=== PATIENT | male | born 1980 | race Caucasian/White ===

== ENCOUNTER → 2019-10-10 13:41 | Outpatient (CLI) | payer OTHER, SELFPAY ==
[2019-10-10 15:19] LABS: Absolute Lymphocyte Count 1.31 X10^3/uL (0.83-4.51); Absolute Neutrophil Count 1.8 X10^3/uL (2.0-7.7); Basophil# 0.08 X10^3/uL; Basophil% 1.9 % (0-1); Eosinophil# 0.13 X10^3/uL; Eosinophils% 3.2 % (0-5); Hematocrit 40.5 % (40-54); Hemoglobin 13.5 g/dL (13.0-16.5); Lymphocyte # 1.31 X10^3/ul (4.0); Lymphocyte % 31.8 % (19-41); Mean Corp Hgb Conc 33.3 g/dL (32-36); Mean Platelet Vol. 9.7 fl (6.2-12.0); Monocyte# 0.78 X10^3/uL; Monocyte% 18.9 % (0-10); NRBC Flagged by Analyzer 0 % (0-5); Neutrophil # 1.81 X10^3/uL (2.7-7.7); Platelet Count 265 K/mm3 (150-450); RBC Distribution Width CV 11.9 % (11.6-14.6); RBC Distribution Width SD 41.2 fl (35.1-43.9); Red Blood Count 4.22 M/mm3 (4.6-6.2); White Blood Count 4.1 K/mm3 (4.4-11.0)
[2019-10-10 15:40] LABS: ALB/GLOB Ratio 0.8 RATIO (0.9-2.4); AST(SGOT) 45 U/L (15-37); Alanine Aminotransfer ALT/SGPT 86 U/L (16-61); Albumin, Serum 3.7 g/dL (3.2-5.0); Alkaline Phosphatase 71 U/L (45-117); Anion Gap 5 (5-15); BUN 23 mg/dL (7-18); BUN/Creat Ratio 22.8 RATIO (10-20); CPK Total, Creatine Kinase 168 U/L (39-308); Calcium,Total 9.1 mg/dL (8.5-10.1); Chloride 102 mmol/L (98-107); Creatinine, Serum 1.01 mg/dL (0.70-1.30); EST Glomerular Filtration Rate 87 mL/min (>60); Est Glom Filt Rate - Afr Amer 105 mL/min (>60); Globulin 4.4 g/dL (2.2-4.2); Glucose 88 mg/dL (74-106); Potassium 3.8 mmol/L (3.5-5.1); Protein, Total 8.1 g/dL (6.4-8.2); Sodium Level 137 mmol/L (136-145)
== END ==
PROVIDERS: PCP Family Medicine; Referring Provider Family Medicine; Visit Provider Family Medicine
DX: D69.6 Thrombocytopenia, unspecified (principal); R79.89 Other specified abnormal findings of blood chemistry; M62.82 Rhabdomyolysis
CPT/HCPCS: 36415; 80053; 82550; 85025

== ENCOUNTER → 2019-12-08 08:36 | Outpatient (CLI) | payer OTHER, SELFPAY ==
[2019-12-08 10:19] LABS: AST(SGOT) 65 U/L (15-37); Alanine Aminotransfer ALT/SGPT 74 U/L (16-61); Albumin, Serum 3.7 g/dL (3.2-5.0); Alkaline Phosphatase 83 U/L (45-117); Anion Gap 9 (5-15); BUN 20 mg/dL (7-18); BUN/Creat Ratio 15.3 RATIO (10-20); Calcium,Total 8.8 mg/dL (8.5-10.1); Chloride 105 mmol/L (98-107); Cholesterol 184 mg/dL (200); Creatinine, Serum 1.31 mg/dL (0.70-1.30); EST Glomerular Filtration Rate 65 mL/min (>60); Est Glom Filt Rate - Afr Amer 78 mL/min (>60); Globulin 3.8 g/dL (2.2-4.2); Glucose 118 mg/dL (74-106); High Density Lipoprotein 39 mg/dL; PSA,Total - Annual Screen 0.76 ng/mL (0.00-4.00); Potassium 3.6 mmol/L (3.5-5.1); Protein, Total 7.5 g/dL (6.4-8.2); Sodium Level 139 mmol/L (136-145); Triglycerides 605 mg/dL; Uric Acid 10.8 mg/dL (3.5-7.2)
== END ==
LOC: MFPLAB 08:37
PROVIDERS: PCP Family Medicine; Referring Provider Family Medicine; Visit Provider Family Medicine
DX: M10.9 Gout, unspecified (principal); R79.89 Other specified abnormal findings of blood chemistry
CPT/HCPCS: 36415; 80053; 80061; 84153; 84403; 84550; G0103

== ENCOUNTER 2020-06-11 08:36 | Inpatient (IN) | payer OTHER, SELFPAY ==
[2020-06-11] VITALS (31 sets, daily range): BP systolic 72–169; BP diastolic 46–95; PULSE 87–132; RESP 18–34; TEMP 35.7–37.2; O2SAT 90–100; BMI 43.9; BMI 42.3
--- NOTE | 2020-06-11 08:38 | EKG12_ITS ---
Test Reason : CHEST PAIN Blood Pressure : / mmHG Vent. Rate : 134 BPM Atrial Rate : 134 BPM P-R Int : 140 ms QRS Dur : 094 ms QT Int : 300 ms P-R-T Axes : 037 063 027 degrees QTc Int : 448 ms Sinus tachycardia Otherwise normal ECG When compared with ECG of 11-JUN-2020 08:39, MANUAL COMPARISON REQUIRED, DATA IS UNCONFIRMED Confirmed by RE PATTON, LI ([id number]), social media editor SACHI RAHMAN ([id number]) on 06/14/2020 1:08:29 PM Referred By: ELICEO Confirmed By:LI GRIMALDO MD
[2020-06-11] MEDS: 0.9% Normal Saline 1,000 ML 1000 ML IV (08:40)
[2020-06-11 08:56] LABS: Basophil# 0.02 X10^3/uL; Eosinophil# 0.01 X10^3/uL; Hematocrit 46.8 % (40-54); Hemoglobin 15.8 g/dL (13.0-16.5); Lymphocyte # 0.64 X10^3/ul (4.0); Mean Corp Hgb Conc 33.8 g/dL (32-36); Mean Corpuscular Volume 94.7 fL (80-94); Mean Platelet Vol. 10.5 fl (6.2-12.0); Monocyte# 0.43 X10^3/uL; NRBC Flagged by Analyzer 0.8 % (0-5); POSITIVE COUNT YES; POSITIVE MORPHOLOGY YES; Platelet Count 92 K/mm3 (150-450); RBC Distribution Width CV 16.2 % (11.6-14.6); RBC Distribution Width SD 56.3 fl (35.1-43.9); Red Blood Count 4.94 M/mm3 (4.6-6.2); White Blood Count 6.7 K/mm3 (4.4-11.0)
[2020-06-11 08:57] LABS: Differential Indicated SCAN CRITERIA MET
[2020-06-11 09:10] LABS: International Normalized Ratio 1.2; Prothrombin Time (Protime)PT. 14.6 SECONDS (11.7-14.9)
[2020-06-11 09:25] LABS: Anion Gap 17 (5-15); BUN 62 mg/dL (7-18); BUN/Creat Ratio 8.8 RATIO (10-20); Calcium,Total 6.6 mg/dL (8.5-10.1); Chloride 92 mmol/L (98-107); Creatinine, Serum 7.04 mg/dL (0.70-1.30); EST Glomerular Filtration Rate 9 mL/min (>60); Est Glom Filt Rate - Afr Amer 11 mL/min (>60); Estimated Creatinine Clearance 14.86 ml/min; Glucose 129 mg/dL (74-106); Potassium 4.6 mmol/L (3.5-5.1); Sodium Level 127 mmol/L (136-145)
[2020-06-11 09:34] LABS: Eosinophil 1 % (0-5); Lymphocyte 10 % (19-41); Metamyelocyte 4 % (0-1); Monocyte 23 % (0-10); Myelocyte 1 (0-0); Neutrophil-Band 6 % (0-5); Neutrophil-Segmented 55 % (47-70); Red Cell Morphology NORM C+C NORMAL (NORM C&C); Total Cells Counted 100 (MANUAL DIFF)
[2020-06-11 09:35] LABS: Platelet Estimate MOD DEC (ADEQ); Scan Smear per Review Criteria MANUAL DIFF
[2020-06-11 09:36] LABS: Absolute Lymphocyte Count 0.67 X10^3/uL (0.83-4.51); Absolute Neutrophil Count 4.1 X10^3/uL (2.0-7.7)
--- NOTE | 2020-06-11 09:59 | ED.RN ---
PT'S BILAT LOWER EXTREMITY PALE, BUT WARM TO TOUCH. AWARE.
--- NOTE | 2020-06-11 10:47 | CT_ITS ---
STUDY: CT ABDOMEN AND PELVIS WITHOUT CONTRAST REASON FOR EXAM: Male, 40 years old. Pain -- acute kidney failure RADIATION DOSAGE (If Supplied By Facility): CTDIvol = ( 23.87 ) mGy, DLP = ( 1425.28 ) mGycm TECHNIQUE: Transaxial images were obtained from the dome of the diaphragm to the symphysis pubis without oral contrast, and without intravenous contrast. Sagittal and coronal images were reconstructed. Individualized dose optimization techniques were used for this CT. COMPARISON: None. FINDINGS: Lack of intravenous contrast limits evaluation of abdominal and pelvic organs. There is bilateral lower lobe atelectasis, left greater than right. The visualized portions of the heart are within normal limits. There is decreased attenuation of the liver consistent with steatosis. Normal gallbladder and extrahepatic biliary system. Normal spleen. There is diffuse enlargement of the pancreas with saeed-pancreatic edema suggesting acute pancreatitis. There is mild free fluid in the left paracolic gutter. Normal bilateral adrenal glands. Normal right kidney. Normal left kidney. Normal visualized stomach. There is mild wall thickening and inflammation of the duodenum, this may be reactive. Normal colon. The appendix is visualized and appears normal. Normal abdominal aorta. Normal inferior vena cava. Normal retroperitoneum. Normal urinary bladder. Small to moderate fat containing umbilical hernia. There are diffuse degenerative changes of the visualized lumbar spine. There is bilateral L5 pars interarticularis fractures. Grade 1 anterolisthesis of L5 on S1. CT/Abdomen/Pelvis without Cont IMPRESSION: 1. There is diffuse enlargement of the pancreas with saeed-pancreatic edema suggesting acute pancreatitis. There is mild free fluid in the left paracolic gutter. Mild wall thickening and inflammation of the duodenum, this may be reactive. 2. Chronic findings described above. Electronically Signed: Layton Wilde MD at 11:39 EDT Tel , Service support ,
--- NOTE | 2020-06-11 11:07 | RAD_ITS ---
STUDY: X-RAY CHEST REASON FOR EXAM: Male, 40 years old. Dyspnea TECHNIQUE: Single AP portable view of the chest. COMPARISON: None. FINDINGS: EKG electrodes are seen. Limited inspiratory effort. Increased markings at the lung bases likely prominent on the right side suggestive of either linear atelectasis and/or early infiltrate. There is blunting of the left costophrenic angle. Normal size heart. Normal mediastinum and samara. Normal visualized pulmonary arteries. Normal visualized aortic arch and descending thoracic aorta. Normal visualized thoracic spine. Normal visualized ribs, clavicles, and shoulders. Questionable ascites within the abdomen. RAD/Chest 1 View (Portable) IMPRESSION: Limited inspiration with increased markings at the lung bases slightly more prominent on the right side suggestive of either linear atelectasis and/or early infiltrate. Findings suggestive of possible ascites. Electronically Signed: Thomas Scott MD at 11:19 EDT , Service support ,
[2020-06-11] MEDS: Ondansetron 4 MG/2 ML Vial IV (12:51)
[2020-06-11] MEDS: LORazepam 2 MG/ML Syringe 1 MG IV (13:11)
[2020-06-11 13:19] LABS: Lipase 1550 U/L (73-393)
--- NOTE | 2020-06-11 13:42 | ED.DCSUM_ITS ---
- ER Visit Summary Date of Service: 06/11/20 Chief Complaint: Dark stool concern for GI bleed History of Present Illness: The patient is a 40 M 3 of hypertension. Patient states that his Luther had dark stools is concern for GI bleed. He denies any hematemesis. He denies any history of prior GI bleed. Physical Examination: Middle-aged male initial blood pressure 86/61 otherwise afebrile. Does not look septic or toxic. HEENT exam unremarkable. Neck nontender. Lungs clear to auscultation bilaterally. Heart tachycardic rate of 105. Murmur. Abdomen soft. Mild tenderness in epigastric region. No peritoneal signs no obstruction. No bruising. Patient moving all 4 extremi ties. Nontender no edema. Neurologically is awake alert with no focal motor deficits. Test Results: CBC showed white count of 6. Hemoglobin 15. Chemistries sodium 127. Gap 1 7. CO2 was 18. Patient is in acute renal failure with a BUN of 62 creatinine 7. Lipase is elevated 1550. INR normal. Bladder scan was performed it was negative. This was done because he states he was having trouble urinating. EKG sinus tachycardia rate of 112. No signs of ischemia. Chest x- ray portable 1 view interpreted by myself and the radiologist shows atelectasis no acute process. CAT scan abdomen pelvis without any contrast due to his acute renal failure shows what appears to be acute pancreatitis with some ascites. This was read by the radiologist and reviewed by me. Emergency Department Course and Treatment: Middle-aged male with hypotension and possible GI bleed. Typed and crossed. Treated with a liter normal saline his blood pressure is now over 100. His blood count returned with a hemoglobin of 15 he is not been given any blood. He was given Zofran for his nausea. IV fentanyl for his abdominal pain. Treatment Plan: Spoke to the hospitalist patient will be admitted to the PCU. Patient is doing well on repeat exam at 1345. His blood pressure is above 100. Disposition: Admission Impression: Acute pancreatitis Rule out upper GI bleed Acute renal failure of uncertain etiology Transient hypotension resolved This note was generated with [employer] dictation software. It may contain incorrect words, spelling, and punctuation that were not noted in review of the chart prior to signing ED Disposition - Plan for ED Patient: Referrals: Chace Min MD [Primary Care Provider] -
[2020-06-11 13:59] LABS: AST(SGOT) 235 U/L (15-37); Alanine Aminotransfer ALT/SGPT 232 U/L (16-61); Albumin, Serum 2.8 g/dL (3.2-5.0); Alkaline Phosphatase 141 U/L (45-117); Bilirubin, Direct 8.56 mg/dL (0.00-0.30); Globulin 4.2 g/dL (2.2-4.2)
--- NOTE | 2020-06-11 14:25 | ED.RN ---
pt is seeing things, talking about things that are not happening. MD aware. no new orders regarding hallcinations.
[2020-06-11] MEDS: 0.9% Normal Saline 1,000 ML 999 ML IV (14:26)
--- NOTE | 2020-06-11 15:38 | HP.PCM_ITS ---
Problem List (1) SAMEER (acute kidney injury) Status: Acute (2) SIRS (systemic inflammatory response syndrome) Status: Acute (3) Hyperbilirubinemia Status: Acute (4) Pancreatitis Status: Acute Qualifiers: Chronicity: acute Pancreatitis type: unspecified pancreatitis type Acute pancreatitis complication: unspecified Qualified Code(s): K85.90 - Acute pancreatitis without necrosis or infection, unspecified History of Present Illness Date of Admission: 06/11/20 Chief Complaint: abdominal pain The patient is a 40 year old M presents with abdominal pain and intractable nausea and vomiting. Symptoms began on the . Patient stated that he was playing football with his kids got hit in abdomen and it seems to have started all the symptoms. Patient stated that he had a bit of a hernia that do have actually improved after this. The patient was not feeling any better and I presented to the emergency room. Patient was found to have acute kidney injury with a creatinine of 7. CAT scan showed what appeared be pancreatitis and lipase was 1550. In the emergency room, patient did receive fentanyl, lorazepam, Zofran, Protonix and IV fluids. Patient denies alcohol consumption that he has not drank in months. Patient noted flecks of blood in his stool and stated that stool was black. Has been taking Pepto-Bismol during this time. [] Past Medical History Medical History: Medical History (Last Updated 06/11/20 @ 15:[address] Murray Edwards, ) Gout M10.9 Hyperlipidemia E78.5 Low testosterone in male R79.89 HTN (hypertension) I10 Allergies No Known Allergies Allergy (Verified 06/11/20 11:43) Home Medications: Ambulatory Orders Medication Instructions Recorded Allopurinol 100 mg PO DAILY 06/11/20 Amlodipine [Norvasc] 10 mg PO DAILY 06/11/20 Atorvastatin Calcium [Lipitor] 10 mg PO QHS 06/11/20 Clonidine HCl 0.1 mg PO BID 06/11/20 Escitalopram Oxalate [Lexapro] 10 mg PO DAILY 06/11/20 Indomethacin 50 mg PO BID PRN PRN 06/11/20 Lisinopril 40 mg PO DAILY 06/11/20 Metoprolol Tartrate 50 mg PO DAILY 06/11/20 Testosterone Cypionate 0.5 ml IM QWEEK 06/11/20 Trazodone HCl 50 - 100 mg PO QHS 06/11/20 Smoking Status: Never smoker - *Family History Maternal History Items: - - no CAD Review of Systems Constitutional: Reports: Anorexia, Chills, Malaise, Weakness. Denies: Fever Eyes: Denies: Blurred vision, Double vision HEENT: Denies: Head Aches, Sinus Congestion, Sinus Drainage Cardiovascular: Denies: Chest Pain, Palpitations Respiratory: Denies: Cough, Shortness of breath at rest, Sputum production Gastrointestinal: Reports: Abdominal Pain, Nausea, Vomiting Genitourinary: Reports: - - decreased output. Denies: Dysuria Musculoskeletal: Denies: Joint Pain, Joint Tenderness Skin: Denies: Rash, Wounds Neurological: Denies: Numbness, Tingling, Focal weakness Psychiatric: Denies: Anxiety, Depression Hematologic/ Lymphatic: Denies: Easy Bruising, Easy Bleeding, Hx of blood clot Comment: All review of systems were negative except as mentioned above in the history of present illness and the other review of systems. VTE Information - Inpt Only VTE Present on Admission: No VTE Mechan Device Prophylaxis: None VTE Pharm Prophylaxis ordered?: Yes - Physical Exam Vitals/I&O's: Vital Signs Temp Pulse Resp BP Pulse Ox 37.2 C 118 H 22 H 92/53 L 94 06/11/20 14:21 06/11/20 14:47 06/11/20 14:47 06/11/20 14:47 06/11/20 14:47 Oxygen Flow Rate (L/min) 6 Oxygen Delivery Method Room Air Weight: 142.7 kg Body Mass Index (BMI) 43.9 Intake and Output for Last 24 Hours 06/09/20 06/10/20 06/11/20 22:59 23:59 23:59 Intake Total 1000 / 1000 Output Total 0 / 0 Balance 1000 / 1000 General: Alert, - - Rigors. Alert and oriented. Sitting up in a chair with his gown just over his lap. Diaphoretic. HEENT: Atraumatic, Normocephalic, - - Positive icterus Neck: No Nodes, Thyroid Normal Size and Texture Lungs: Clear to auscultation, Normal air movement, No rhonchi, No wheeze, No rales Cardiovascular: Regular rate, Regular Rhythm, Normal S1, Normal S2, No murmurs Abdomen: Bowel Sounds Present, Soft, Non Tender, Non-Distended, No Hepato- splenomegaly Extremities: No edema, No Calf Tenderness Skin: No rashes, No breakdown Musculoskeletal: No Tenderness to Palpation of Joints or Extremities, No Muscle Wasting Neurological: Sensory exam intact to light touch and pain, Coordination normal Psych/Mental Status: Appropriate, Anxious Laboratory Results 06/11/20 08:40: WBC 6.7, RBC 4.94, Hgb 15.8, Hct 46.8, MCV 94.7 H, MCH 32.0, MCHC 33.8, RDW Std Deviation 56.3 H, RDW Coeff of Blayne 16.2 H, Plt Count 92 L, MPV 10.5, Immature Gran % (Auto) AFTER SCHOOL TEACHER, Neut % (Auto) AFTER SCHOOL TEACHER, Lymph % (Auto) AFTER SCHOOL TEACHER, [place] % (Auto) AFTER SCHOOL TEACHER, Eos % (Auto) AFTER SCHOOL TEACHER, Baso % (Auto) AFTER SCHOOL TEACHER, Absolute Neuts (auto) 4.1, Absolute Lymphs (auto) 0.67 L, Total Counted 100, Neutrophils % (Manual) 55, Band Neutrophils % 6 H, Lymphocytes % (Manual) 10 L, Monocytes % (Manual) 23 H, Eosinophils % (Manual) 1, Metamyelocytes % 4 H, Myelocytes % 1 H, Nucleated RBC % 0.8, Diff Path Review July, Platelet Estimate MOD DEC, RBC Morphology NORM C+C 06/11/20 08:40: PT 14.6, INR 1.2 06/11/20 08:40: Sodium 127 L, Potassium 4.6, Chloride 92 L, Carbon Dioxide 18.0 L, Anion Gap 17 H, BUN 62 H, Creatinine 7.04 H, Estim Creat Clear Calc 14.86, Est GFR (MDRD) Af Amer 11 L, Est GFR (MDRD) Non-Af 9 L, BUN/Creatinine Ratio 8.8 L, Glucose 129 H, Calcium 6.6 L 06/11/20 08:40: Blood Type O POSITIVE, Antibody Screen NEGATIVE, Crossmatch See Detail 06/11/20 08:40: Lipase 1550 H 06/11/20 08:40: Total Bilirubin 10.70 H, Direct Bilirubin 8.56 H, AST 235 H, ALT 232 H, Alkaline Phosphatase 141 H, Total Protein 7.0, Albumin 2.8 L, Globulin 4.2 Clinical Impression(s) from Imaging Studies Abdomen/Pelvis CT 06/11/20 10:47 IMPRESSION: 1. There is diffuse enlargement of the pancreas with saeed-pancreatic edema suggesting acute pancreatitis. There is mild free fluid in the left paracolic gutter. Mild wall thickening and inflammation of the duodenum, this may be reactive. 2. Chronic findings described above. Electronically Signed: Layton Wilde MD at 11:39 EDT Tel , Service support , Chest X-Ray 06/11/20 11:07 IMPRESSION: Limited inspiration with increased markings at the lung bases slightly more prominent on the right side suggestive of either linear atelectasis and/or early infiltrate. Findings suggestive of possible ascites. Electronically Signed: Thomas Scott MD at 11:19 EDT , Service support , Assessment/Plan All Active Problems SAMEER (acute kidney injury) (Acute) SIRS (systemic inflammatory response syndrome) (Acute) Hyperbilirubinemia (Acute) Pancreatitis (Acute) 1. Acute kidney injury Presumed prerenal given the patient's intractable nausea and vomiting though he was able to drink some fluids. Plan * IV fluids * Check renal studies, check renal ultrasound * Consult nephrology, discussed with Dr. Abreu * May need to consider [place] catheter placement * Hold potentiating medications 2. Systemic inflammatory response syndrome Unclear etiology at this time Patient has no respiratory complaints and stated that he had Covid last year Plan * Empiric antibiotics with Pipracil/tazobactam * Check blood culture, urine culture and COVID-19 rapid antigen. 3. Elevated bilirubin Unclear etiology at this time Plan * General surgery on consult, Dr. Pennington notified * He has recommended an MRCP given the extremely high bilirubin level. 4. Pancreatitis, acute Question if the hit that he sustained playing football with his kids cause any of his abdominal complaints or if it is just more coincidental Plan * Continue with IV fluids * MRCP 5. Gout Stable at this time Plan: Hold allopurinol for the time being 6. Hypotension Suspect due to volume depletion Improved Plan * Hold the antihypertensives for now * IV fluids 7. VTE prophylaxis Subcu heparin for now. If patient does require intervention then would hold in place on SCDs. 8. Black stool Hemoglobin stable though certainly would be hemoconcentrated at this point in time Suspect related with Pepto-Bismol Plan * Monitor for now * PPI Inpatient E&M: [id number] Init Hosp L3
--- NOTE | 2020-06-11 16:15 | ED.RN ---
discussed holding pain medication with md. pt bp is up and down and pt has been hallucinating since receiving ativan.
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
--- NOTE | 2020-06-11 17:19 | ED.RN ---
report given to [facility].
--- NOTE | 2020-06-11 17:56 | MRI_ITS ---
STUDY: MR MRCP WITHOUT CONTRAST REASON FOR EXAM: Male, 40 years old. elevated bilirubin, GI bleed, blood in stool TECHNIQUE: Standard MRCP technique was utilized. COMPARISON: CT earlier today FINDINGS: Gall Bladder: Normal with no distention or demonstrated fixed intraluminal filling defect. Cystic duct: Normal with no demonstrated fixed filling defect. Intrahepatic ducts: Normal visualized intrahepatic ducts with no demonstrated fixed filling defect, dilation or stricture. Common hepatic duct: Normal with no demonstrated fixed filling defect, dilation or stricture. Common bile duct: Normal with no demonstrated fixed filling defect, dilation or stricture. Pancreatic duct: Normal with no demonstrated fixed filling defect, dilation or stricture. MRI/MRCP Abdomen without Contrast IMPRESSION: Normal MR Cholangiopancreatography (MRCP). Electronically Signed: Sebastian Rankin MD at 20:28 EDT Tel , Service support ,
--- NOTE | 2020-06-11 17:56 | US_ITS ---
STUDY: RENAL ULTRASOUND - COMPLETE REASON FOR EXAM: Male, 40 years old. SAMEER TECHNIQUE: Ultrasound evaluation of the kidneys was performed with real-time and static sánchez-scale imaging. COMPARISON: None. FINDINGS: RIGHT KIDNEY: Normal location of the right kidney, which is normal in size. The right kidney measures 12.3 cm. There is a normal cortex of the right kidney. The renal cortex measures 1.8 cm. There is no right renal mass or cyst. There are no right renal calculi. There is no right hydronephrosis. DISTAL RIGHT URETER: There is non-visualization of the distal right ureter. There is no demonstrated right ureterovesical junction calculus. There is a visualized right ureteral jet. LEFT KIDNEY: Normal location of the left kidney, which is normal in size. The left kidney measures 13.1 cm. There is a normal cortex of the left kidney. The renal cortex measures 1.8 cm. There is no left renal mass or cyst. There are no left renal calculi. There is no left hydronephrosis. DISTAL LEFT URETER: There is non-visualization of the distal left ureter. There is no demonstrated left ureterovesical junction calculus. There is a visualized left ureteral jet. . US/Kidney and Bladder IMPRESSION: Normal ultrasound of the kidneys. Electronically Signed: Sebastian Rankin MD at 18:53 EDT Tel , Service support ,
[2020-06-11] MEDS: Lactated Ringers 1,000 ML 200 ML IV (18:11)
[2020-06-11] MEDS: 0.9% Saline Lock 10 ML Syringe IV (18:17)
[2020-06-11 18:30] LABS: Absolute Lymphocyte Count 0.63 X10^3/uL (0.83-4.51); Absolute Neutrophil Count 3.1 X10^3/uL (2.0-7.7); Basophil# 0.01 X10^3/uL; Basophil% 0.2 % (0-1); Eosinophil# 0.02 X10^3/uL; Eosinophils% 0.5 % (0-5); Hematocrit 40.7 % (40-54); Hemoglobin 13.8 g/dL (13.0-16.5); Lymphocyte # 0.63 X10^3/ul (4.0); Mean Corp Hgb Conc 33.9 g/dL (32-36); Mean Corpuscular Hgb 31.9 pg (27.0-32.0); Mean Corpuscular Volume 94.2 fL (80-94); Mean Platelet Vol. 10.5 fl (6.2-12.0); Monocyte% 9.5 % (0-10); NRBC Flagged by Analyzer 0.7 % (0-5); Neutrophil # 3.06 X10^3/uL (2.7-7.7); Neutrophil % 72.7 % (47-70); POSITIVE COUNT YES; POSITIVE MORPHOLOGY YES; Platelet Count 83 K/mm3 (150-450); RBC Distribution Width CV 16.3 % (11.6-14.6); RBC Distribution Width SD 56.5 fl (35.1-43.9); Red Blood Count 4.32 M/mm3 (4.6-6.2); White Blood Count 4.2 K/mm3 (4.4-11.0)
[2020-06-11 18:32] LABS: Differential Indicated SCAN CRITERIA MET
[2020-06-11 18:49] LABS: Differential Comment SCANNED
[2020-06-11] MEDS: traZODone 100 MG Tablet PO (21:17)
--- NOTE | 2020-06-11 22:30 | NURSING ---
While pt was cleansing himself, after a BM, accidentally pulled left hand IV out. Cleaned site and applied dressing. Angio intact.
[2020-06-12] VITALS (10 sets, daily range): BP systolic 77–127; BP diastolic 61–112; PULSE 132–140; RESP 19–35; TEMP 35.7–36.5; O2SAT 90–94
[2020-06-12] MEDS: Lactated Ringers 1,000 ML 150 ML IV ×2 (00:19→06:31)
[2020-06-12] MEDS: 0.9% Saline Lock 10 ML Syringe IV (00:21)
[2020-06-12 00:32] LABS: Hematocrit 39.7 % (40-54); Hemoglobin 13.5 g/dL (13.0-16.5); Mean Corpuscular Hgb 32.2 pg (27.0-32.0); Mean Corpuscular Volume 94.7 fL (80-94); Mean Platelet Vol. 10.2 fl (6.2-12.0); POSITIVE COUNT YES; POSITIVE DIFFERENTIAL YES; POSITIVE MORPHOLOGY YES; Platelet Count 81 K/mm3 (150-450); RBC Distribution Width CV 16.5 % (11.6-14.6); RBC Distribution Width SD 57.1 fl (35.1-43.9); Red Blood Count 4.19 M/mm3 (4.6-6.2); White Blood Count 1.8 K/mm3 (4.4-11.0)
[2020-06-12 00:33] LABS: Differential Indicated MANUAL DIFF
[2020-06-12 00:54] LABS: ALB/GLOB Ratio 0.6 RATIO (0.9-2.4); AST(SGOT) 152 U/L (15-37); Alanine Aminotransfer ALT/SGPT 154 U/L (16-61); Albumin, Serum 2.3 g/dL (3.2-5.0); Alkaline Phosphatase 141 U/L (45-117); Anion Gap 17 (5-15); BUN 76 mg/dL (7-18); BUN/Creat Ratio 9.1 RATIO (10-20); Calcium,Total 6.4 mg/dL (8.5-10.1); Chloride 96 mmol/L (98-107); Creatinine, Serum 8.39 mg/dL (0.70-1.30); EST Glomerular Filtration Rate 8 mL/min (>60); Est Glom Filt Rate - Afr Amer 9 mL/min (>60); Estimated Creatinine Clearance 12.47 ml/min; Glucose 94 mg/dL (74-106); Potassium 4.5 mmol/L (3.5-5.1); Protein, Total 6.3 g/dL (6.4-8.2); Sodium Level 130 mmol/L (136-145)
[2020-06-12 01:34] LABS: Absolute Lymphocyte Count 0.34 X10^3/uL (0.83-4.51); Lymphocyte 19 % (19-41); Metamyelocyte 12 % (0-1); Monocyte 9 % (0-10); Myelocyte 2 (0-0); Neutrophil-Band 12 % (0-5); Neutrophil-Segmented 46 % (47-70); Total Cells Counted 100 (MANUAL DIFF)
[2020-06-12 01:35] LABS: Platelet Estimate MOD DEC (ADEQ); Red Cell Morphology NORM C+C NORMAL (NORM C&C)
--- NOTE | 2020-06-12 02:40 | EKG12_ITS ---
Test Reason : GI BLEED Blood Pressure : / mmHG Vent. Rate : 112 BPM Atrial Rate : 112 BPM P-R Int : 154 ms QRS Dur : 094 ms QT Int : 350 ms P-R-T Axes : 047 076 039 degrees QTc Int : 477 ms Sinus tachycardia Possible Left atrial enlargement Borderline ECG Confirmed by RE PATTON, LI ([id number]), editorial cartoonist SACHI RAHMAN ([id number]) on 06/15/2020 9:35:20 AM Referred By: KALYANI Confirmed By:LI GRIMALDO MD
[2020-06-12] MEDS: HYDROmorphone 0.5 MG/0.5 ML SYRINGE IV (02:44)
[2020-06-12 03:56] LABS: Bedside Glucose 69 mg/dL (70-110)
--- NOTE | 2020-06-12 03:56 | NURSING ---
Addendum entered by Tona Kumar 06/12/20 04:04: Pt states father was diabetic, but pt has not been diagnosed. Original Note: Pt has been restless all night. Medicated for pain, with moderate relief of pain symptoms. Diaphoretic, with tremors and temp below norm at 96.2F. Checked blood glucose, result 69mg/dl gave pt 120ml orange juice.
[2020-06-12 05:33] LABS: Bedside Glucose 66 mg/dL (70-110)
[2020-06-12] MEDS: Dextrose 50%-Water 25 GM/50 ML DISP.SYRIN IV (05:44)
--- NOTE | 2020-06-12 05:46 | NURSING ---
Pt confused again and pulling at equipment. IV dressings loose and changed. Easily reoriented and redirected. Pt diaphoretic again. Blood glucose 66mg/dl, half amp of D50 given.
[2020-06-12 06:53] LABS: Lipase 739 U/L (73-393)
[2020-06-12 07:25] LABS: Allen Test Positive; Base Excess -16 mmol/L (-2 to +2); Bicarbonate 13.2 mmol/L (22-26); Blood Gas Specimen Type ART; O2 Delivery Device Cannula; PO2 47 mmHG (75-100); SITE L Radial; SO2 70 % (95-99); Total Carbon Dioxide 14 mmol/L; pCO2 38.2 mmHg (35-45); pH 7.15 (7.35-7.45)
--- NOTE | 2020-06-12 07:50 | PN.SURG_ITS ---
Patient Problems: Active and Suspected Problems (Last Updated 06/11/20 @ 15:[address] Murray Edwards, DO) SAMEER (acute kidney injury) (Acute) SIRS (systemic inflammatory response syndrome) (Acute) Hyperbilirubinemia (Acute) Pancreatitis (Acute) Subjective: The patient had tachycardia overnight. When I rounded on him this morning the patient was porting less abdominal pain. He had no nausea or vomiting overnight. - Physical Exam Vitals/I&O's: Vital Signs Temp Pulse Resp BP Pulse Ox 96.2 F L 139 H 32 H 127/112 H 93 06/12/20 04:00 06/12/20 07:00 06/12/20 07:00 06/12/20 07:00 06/12/20 05:00 Oxygen Flow Rate (L/min) 2 Oxygen Delivery Method Nasal Cannula Weight: 303 lb 12.752 oz Body Mass Index (BMI) 42.3 Intake and Output for Last 24 Hours 06/10/20 06/11/20 06/12/20 23:59 23:59 23:59 Intake Total 2915.08 / 3069.25 1393.17 / 1393.17 Output Total 0 / 0 0 / 0 Balance 2915.08 / 3069.25 1393.17 / 1393.17 General: Alert, Cooperative, Confused Lungs: Normal air movement Abdomen: Soft, Non-Distended, Tender Microbiology Past 72 Hours 06/11/20 18:00 Mucosa - Nose SARS-CoV-2 Antigen (Rapid) - Final Laboratory Results 06/11/20 08:40: WBC 6.7, RBC 4.94, Hgb 15.8, Hct 46.8, MCV 94.7 H, MCH 32.0, MCHC 33.8, RDW Std Deviation 56.3 H, RDW Coeff of Blayne 16.2 H, Plt Count 92 L, MPV 10.5, Immature Gran % (Auto) MILL CONTROLLER, Neut % (Auto) MILL CONTROLLER, Lymph % (Auto) MILL CONTROLLER, [place] % (Auto) MILL CONTROLLER, Eos % (Auto) MILL CONTROLLER, Baso % (Auto) MILL CONTROLLER, Absolute Neuts (auto) 4.1, Absolute Lymphs (auto) 0.67 L, Total Counted 100, Neutrophils % (Manual) 55, Band Neutrophils % 6 H, Lymphocytes % (Manual) 10 L, Monocytes % (Manual) 23 H, Eosinophils % (Manual) 1, Metamyelocytes % 4 H, Myelocytes % 1 H, Nucleated RBC % 0.8, Diff Path Review May foll, Platelet Estimate MOD DEC, RBC Morphology NORM C+C 06/11/20 08:40: PT 14.6, INR 1.2 06/11/20 08:40: Sodium 127 L, Potassium 4.6, Chloride 92 L, Carbon Dioxide 18.0 L, Anion Gap 17 H, BUN 62 H, Creatinine 7.04 H, Estim Creat Clear Calc 14.86, Est GFR (MDRD) Af Amer 11 L, Est GFR (MDRD) Non-Af 9 L, BUN/Creatinine Ratio 8.8 L, Glucose 129 H, Calcium 6.6 L 06/11/20 08:40: Blood Type O POSITIVE, Antibody Screen NEGATIVE, Crossmatch See Detail 06/11/20 08:40: Lipase 1550 H 06/11/20 08:40: Total Bilirubin 10.70 H, Direct Bilirubin 8.56 H, AST 235 H, ALT 232 H, Alkaline Phosphatase 141 H, Total Protein 7.0, Albumin 2.8 L, Globulin 4.2 06/11/20 16:45: Ammonia 15.0 06/11/20 18:20: WBC 4.2 L, RBC 4.32 L, Hgb 13.8, Hct 40.7, MCV 94.2 H, MCH 31.9, MCHC 33.9, RDW Std Deviation 56.5 H, RDW Coeff of Blayne 16.3 H, Plt Count 83 L, MPV 10.5, Immature Gran % (Auto) 2.100 H, Neut % (Auto) 72.7 H, Lymph % (Auto) 15.0 L, [place] % (Auto) 9.5, Eos % (Auto) 0.5, Baso % (Auto) 0.2, Absolute Neuts (auto) 3.1, Absolute Lymphs (auto) 0.63 L, Nucleated RBC % 0.7, Differential Comment SCANNED 06/12/20 00:20: WBC 1.8 L, RBC 4.19 L, Hgb 13.5, Hct 39.7 L, MCV 94.7 H, MCH 32.2 H, MCHC 34.0, RDW Std Deviation 57.1 H, RDW Coeff of Blayne 16.5 H, Plt Count 81 L, MPV 10.2, Neut % (Auto) Not Reportable, Absolute Neuts (auto) 1.0 L, Absolute Lymphs (auto) 0.34 L, Total Counted 100, Neutrophils % (Manual) 46 L, Band Neutrophils % 12 H, Lymphocytes % (Manual) 19, Monocytes % (Manual) 9, Metamyelocytes % 12 H, Myelocytes % 2 H, Diff Path Review May foll, Platelet Estimate MOD DEC, RBC Morphology NORM C+C 06/12/20 00:20: Sodium 130 L, Potassium 4.5, Chloride 96 L, Carbon Dioxide 17.0 L, Anion Gap 17 H, BUN 76 H, Creatinine 8.39 H*, Estim Creat Clear Calc 12.47, Est GFR (MDRD) Af Amer 9 L, Est GFR (MDRD) Non-Af 8 L, BUN/Creatinine Ratio 9.1 L, Glucose 94, Calcium 6.4 L*, Total Bilirubin 8.80 H, AST 152 H, ALT 154 H, Alkaline Phosphatase 141 H, Total Protein 6.3 L, Albumin 2.3 L, Globulin 4.0, Albumin/Globulin Ratio 0.6 L 06/12/20 00:20: Troponin I < 0.015 06/12/20 00:20: Lipase 739 H 06/12/20 03:51: POC Glucose 69 L 06/12/20 05:31: POC Glucose 66 L 06/12/20 07:12: Specimen Type ART, Sample Site L Radial, pH 7.15 L*, Bicarbonate Actual 13.2 L, Total CO2 14, Base Excess -16 L, O2 Saturation 70 L, ABG pCO2 38.2, ABG pO2 47 L, Brenden Test Positive, O2 Delivery Device Cannula, Liter Flow 2.0, Crit Call To/Read Back Yes, Blood Gas Notified Whom YAHAIRA Current Medications Dextrose (Dextrose 50%-Water 25 Gm/50 Ml Disp.Syrin) 0 gm IV X1 PRN; Protocol PRN Reason: Hypoglycemia Last Admin: 06/12/20 05:44 Dose: 12.5 gm Documented by: Escitalopram Oxalate (Escitalopram Oxalate 10 Mg Tablet) 10 mg PO DAILY LISA Glucagon (Glucagon 1 Mg/Ml Syringe) 1 mg IM .X1 PRN PRN Reason: Hypoglycemia Hydromorphone HCl (Hydromorphone 0.5 Mg/0.5 Ml Syringe) 0.5 mg IV Q3H PRN PRN PRN Reason: Pain Score 6-10 Last Admin: 06/12/20 02:44 Dose: 0.5 mg Documented by: Lactated Ringer's () 1,000 mls @ 200 mls/hr IV .Q5H [facility] Last Admin: 06/12/20 06:31 Dose: 150 mls/hr Documented by: Piperacillin Sod/Tazobactam (Sod 3.375 gm/ Sodium Chloride) 50 mls @ 12.5 mls/hr IV Q12 [facility] Last Infusion: 06/12/20 01:16 Dose: Infused Documented by: Pantoprazole Sodium 40 mg/ (Sodium Chloride) 110 mls @ 330 mls/hr IV Q12 [facility] Last Infusion: 06/11/20 21:36 Dose: Infused Documented by: Sodium Chloride () 250 mls @ 15 mls/hr IV .[id number] PRN PRN Reason: Saline Flush Last Infusion: 06/12/20 05:02 Dose: 15 mls/hr Documented by: Ondansetron HCl (Ondansetron 4 Mg/2 Ml Vial) 4 mg IV Q8H PRN PRN PRN Reason: NAUSEA/VOMITING Sodium Chloride (0.9% Saline Lock 10 Ml Syringe) 10 - 40 ml IV UD PRN PRN Reason: SALINE FLUSH Last Admin: 06/12/20 00:21 Dose: 40 ml Documented by: Trazodone HCl (Trazodone 100 Mg Tablet) 100 mg PO QHS [facility] Last Admin: 06/11/20 21:17 Dose: 100 mg Documented by: Medical Necessity - Tobacco Use Smoking Status: Never smoker Assessment/Plan All Active Problems (Last Updated 06/11/20 @ 15:[address] Murray Edwards, DO) SAMEER (acute kidney injury) (Acute) SIRS (systemic inflammatory response syndrome) (Acute) Hyperbilirubinemia (Acute) Pancreatitis (Acute) 40-year-old male with pancreatitis 1. Patient had MRCP overnight which did not reveal a cause of the pancreatitis. The patient's bilirubin and LFTs were coming down this morning. The patient however developed neutropenia and his creatinine continues to elevate with no urine output overnight. On this morning's around the patient's abdominal pain seemed less than yesterday. 2. This morning after rounds the patient developed seizure-like activity and was found to be hypoxic and hypoglycemic. A CODE BLUE was called and the patient did not survive resuscitation. Jose Pennington MD Pager: [facility] [address] [place] [address], [address] [place] [phone] Office:
--- NOTE | 2020-06-12 07:56 | CPS ---
This RT was unable to rerun critical ABG values due to patient coding. Dr. Laurent aware of critical ABG results. Kevan [employer]PER[employer]
--- NOTE | 2020-06-12 08:15 | CB_ITS ---
Code Blue Report Patient is a 40-year-old male, currently under the care of Dr. Rico, who presented to [facility] on 06/11/2020 secondary to concerns for dark stools and abdominal pain. In the ER, patient reportedly was hypotensive at 86/61 and tachycardic at 105 bpm. Laboratory work-up had shown a normal white blood cell count of 6 with a sodium of 127, bicarb of 18 creatinine of 7. Lipase was elevated at 1550, but INR was within normal limits. Patient reportedly has had some difficulty urinating. CT of the abdomen and pelvis showed acute pancreatitis with some ascites. Patient was evaluated by surgery, but placed in the intensive care unit overnight. In the intensive care unit, patient was confused overnight. Patient required only minimal nasal cannula oxygen, but no noninvasive therapy. Patient had persistently been tachycardic overnight, but EKG showed only sinus tachycardia. Patient was evaluated at approximately 5:30 AM by myself. At that time, patient was alert and interactive. Patient was slightly confused despite having some fax correct. Patient states that he was seen by Dr. Rico every 6 weeks secondary to hypertension. Patient did admit to drinking, but states he had not had a drink in 5 weeks. Patient stated he did not have any history of DTs. Patient stated that he was feeling of his usual self until Thursday in which he developed some abdominal pain after being tackled by his sons playing football. At approximately 7 AM, I was called emergently to the room for seizure activity. Patient was placed in a recovery position, but then became hypoxic, cyanotic and bradycardic. CPR was initiated immediately. Patient was intubated using rocuronium and a glide scope on the first attempt. Despite improvement in oxygenation, patient remained in PEA. Blood sugars were obtained showing hypoglycemia. Patient received 3 A of D50. See nursing documentation for exact dosages, but patient received approximately 25 minutes of CPR prior to being pronounced. Following acute events, patient's next of kin/emergency contact Yo Hall was called. Apparently Yo has some medical training and stated that he was called approximately a week to 10 days ago by the patient complaining of abdominal pain, weakness and constipation. Patient reportedly had not had any bloody bowel movements at that time. Yo had reported patient was an avid drinker, but was unaware of any history of pancreatitis. 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 Discussed with Dr. Reid about the possibility of an autopsy. Dr. Reid did not believe that an etiology outside of diffuse organ damage would be obtainable. Did discuss the possibility of HUS versus TTP versus antiphospholipid syndrome, but she stated that these are protein specific and would likely not be elucidated through an autopsy. Family is at liberty to request an autopsy if necessary. A total of 85 minutes was spent addressing patient's condition, performing CPR and evaluating documentation. (5:30 AM to 8:30 AM) Patient Problems: Active and Suspected Problems (Last Updated 06/11/20 @ 15:[address] Murray Edwards, DO) SAMEER (acute kidney injury) (Acute) SIRS (systemic inflammatory response syndrome) (Acute) Hyperbilirubinemia (Acute) Pancreatitis (Acute) - Physical Exam Vitals/I&O's: Vital Signs Temp Pulse Resp BP Pulse Ox 35.7 C L 139 H 32 H 127/112 H 93 06/12/20 04:00 06/12/20 07:00 06/12/20 07:00 06/12/20 07:00 06/12/20 05:00 Oxygen Flow Rate (L/min) 2 Oxygen Delivery Method Nasal Cannula Weight: 137.8 kg Body Mass Index (BMI) 42.3 Intake and Output for Last 24 Hours 06/10/20 06/11/20 06/12/20 23:59 23:59 23:59 Intake Total 2915.08 / 3069.25 1393.17 / 1393.17 Output Total 0 / 0 0 / 0 Balance 2915.08 / 3069.25 1393.17 / 1393.17 General: Alert, Confused, Disoriented, - - Morbidly obese HEENT: Atraumatic, PERRLA, EOMI, Normocephalic, - - Scleral icterus noted Oral: Moist Mucosa, - - Crowded posterior pharynx Neck: Supple, No Nodes, Trachea Midline Lungs: No rhonchi, No wheeze, No rales, Diminished Cardiovascular: Normal S1, Normal S2, No murmurs, No rub noted, No Gallop, Tachycardic Abdomen: Bowel Sounds Present, Soft, Non-Distended, Tender - Palpation of left upper quadrant without guarding or rebound Extremities: No cyanosis, Edema Skin: No rashes, No breakdown Musculoskeletal: No Tenderness to Palpation of Joints or Extremities Lymphatic: No Cervical, Supraclavicular, or Inguinal Adenopathy Neurological: Cranial nerves II-XII grossly intact, Neuro grossly intact, Motor Exam 5/5 strength throughout Psych/Mental Status: Anxious, Restless Microbiology Past 72 Hours 06/11/20 18:00 Mucosa - Nose SARS-CoV-2 Antigen (Rapid) - Final Laboratory Results 06/11/20 08:40: WBC 6.7, RBC 4.94, Hgb 15.8, Hct 46.8, MCV 94.7 H, MCH 32.0, MCHC 33.8, RDW Std Deviation 56.3 H, RDW Coeff of Blayne 16.2 H, Plt Count 92 L, MPV 10.5, Immature Gran % (Auto) ASSISTED SALES REPRESENTATIVE, Neut % (Auto) ASSISTED SALES REPRESENTATIVE, Lymph % (Auto) ASSISTED SALES REPRESENTATIVE, [place] % (Auto) ASSISTED SALES REPRESENTATIVE, Eos % (Auto) ASSISTED SALES REPRESENTATIVE, Baso % (Auto) ASSISTED SALES REPRESENTATIVE, Absolute Neuts (auto) 4.1, Absolute Lymphs (auto) 0.67 L, Total Counted 100, Neutrophils % (Manual) 55, Band Neutrophils % 6 H, Lymphocytes % (Manual) 10 L, Monocytes % (Manual) 23 H, Eosinophils % (Manual) 1, Metamyelocytes % 4 H, Myelocytes % 1 H, Nucleated RBC % 0.8, Diff Path Review July, Platelet Estimate MOD DEC, RBC Morphology NORM C+C 06/11/20 08:40: PT 14.6, INR 1.2 06/11/20 08:40: Sodium 127 L, Potassium 4.6, Chloride 92 L, Carbon Dioxide 18.0 L, Anion Gap 17 H, BUN 62 H, Creatinine 7.04 H, Estim Creat Clear Calc 14.86, Est GFR (MDRD) Af Amer 11 L, Est GFR (MDRD) Non-Af 9 L, BUN/Creatinine Ratio 8.8 L, Glucose 129 H, Calcium 6.6 L 06/11/20 08:40: Blood Type O POSITIVE, Antibody Screen NEGATIVE, Crossmatch See Detail 06/11/20 08:40: Lipase 1550 H 06/11/20 08:40: Total Bilirubin 10.70 H, Direct Bilirubin 8.56 H, AST 235 H, ALT 232 H, Alkaline Phosphatase 141 H, Total Protein 7.0, Albumin 2.8 L, Globulin 4.2 06/11/20 16:45: Ammonia 15.0 06/11/20 18:20: WBC 4.2 L, RBC 4.32 L, Hgb 13.8, Hct 40.7, MCV 94.2 H, MCH 31.9, MCHC 33.9, RDW Std Deviation 56.5 H, RDW Coeff of Blayne 16.3 H, Plt Count 83 L, M PV 10.5, Immature Gran % (Auto) 2.100 H, Neut % (Auto) 72.7 H, Lymph % (Auto) 15.0 L, [place] % (Auto) 9.5, Eos % (Auto) 0.5, Baso % (Auto) 0.2, Absolute Neuts (auto) 3.1, Absolute Lymphs (auto) 0.63 L, Nucleated RBC % 0.7, Differential Comment SCANNED 06/12/20 00:20: WBC 1.8 L, RBC 4.19 L, Hgb 13.5, Hct 39.7 L, MCV 94.7 H, MCH 32.2 H, MCHC 34.0, RDW Std Deviation 57.1 H, RDW Coeff of Blayne 16.5 H, Plt Count 81 L, MPV 10.2, Neut % (Auto) Not Reportable, Absolute Neuts (auto) 1.0 L, Absolute Lymphs (auto) 0.34 L, Total Counted 100, Neutrophils % (Manual) 46 L, Band Neutrophils % 12 H, Lymphocytes % (Manual) 19, Monocytes % (Manual) 9, Metamyelocytes % 12 H, Myelocytes % 2 H, Diff Path Review July foll, Platelet Estimate MOD DEC, RBC Morphology NORM C+C 06/12/20 00:20: Sodium 130 L, Potassium 4.5, Chloride 96 L, Carbon Dioxide 17.0 L, Anion Gap 17 H, BUN 76 H, Creatinine 8.39 H*, Estim Creat Clear Calc 12.47, Est GFR (MDRD) Af Amer 9 L, Est GFR (MDRD) Non-Af 8 L, BUN/Creatinine Ratio 9.1 L, Glucose 94, Calcium 6.4 L*, Total Bilirubin 8.80 H, AST 152 H, ALT 154 H, Alkaline Phosphatase 141 H, Total Protein 6.3 L, Albumin 2.3 L, Globulin 4.0, Albumin/Globulin Ratio 0.6 L 06/12/20 00:20: Troponin I < 0.015 06/12/20 00:20: Lipase 739 H 06/12/20 03:51: POC Glucose 69 L 06/12/20 05:31: POC Glucose 66 L 06/12/20 07:12: Specimen Type ART, Sample Site L Radial, pH 7.15 L*, Bicarbonate Actual 13.2 L, Total CO2 14, Base Excess -16 L, O2 Saturation 70 L, ABG pCO2 38.2, ABG pO2 47 L, Brenden Test Positive, O2 Delivery Device Cannula, Liter Flow 2.0, Crit Call To/Read Back Yes, Blood Gas Notified Whom YAHAIRA Current Medications Dextrose (Dextrose 50%-Water 25 Gm/50 Ml Disp.Syrin) 0 gm IV X1 PRN; Protocol PRN Reason: Hypoglycemia Last Admin: 06/12/20 05:44 Dose: 12.5 gm Documented by: Escitalopram Oxalate (Escitalopram Oxalate 10 Mg Tablet) 10 mg PO DAILY LISA Glucagon (Glucagon 1 Mg/Ml Syringe) 1 mg IM .X1 PRN PRN Reason: Hypoglycemia Hydromorphone HCl (Hydromorphone 0.5 Mg/0.5 Ml Syringe) 0.5 mg IV Q3H PRN PRN PRN Reason: Pain Score 6-10 Last Admin: 06/12/20 02:44 Dose: 0.5 mg Documented by: Lactated Ringer's () 1,000 mls @ 200 mls/hr IV .Q5H [facility] Last Admin: 06/12/20 06:31 Dose: 150 mls/hr Documented by: Piperacillin Sod/Tazobactam (Sod 3.375 gm/ Sodium Chloride) 50 mls @ 12.5 mls/hr IV Q12 LISA Last Infusion: 06/12/20 01:16 Dose: Infused Documented by: Pantoprazole Sodium 40 mg/ (Sodium Chloride) 110 mls @ 330 mls/hr IV Q12 [facility] Last Infusion: 06/11/20 21:36 Dose: Infused Documented by: Sodium Chloride () 250 mls @ 15 mls/hr IV .[id number] PRN PRN Reason: Saline Flush Last Infusion: 06/12/20 05:02 Dose: 15 mls/hr Documented by: Ondansetron HCl (Ondansetron 4 Mg/2 Ml Vial) 4 mg IV Q8H PRN PRN PRN Reason: NAUSEA/VOMITING Sodium Chloride (0.9% Saline Lock 10 Ml Syringe) 10 - 40 ml IV UD PRN PRN Reason: SALINE FLUSH Last Admin: 06/12/20 00:21 Dose: 40 ml Documented by: Trazodone HCl (Trazodone 100 Mg Tablet) 100 mg PO QHS [facility] Last Admin: 06/11/20 21:17 Dose: 100 mg Documented by: Clinical Impression(s) from Imaging Studies Abdomen/Pelvis CT 06/11/20 10:47 IMPRESSION: 1. There is diffuse enlargement of the pancreas with saeed-pancreatic edema suggesting acute pancreatitis. There is mild free fluid in the left paracolic gutter. Mild wall thickening and inflammation of the duodenum, this may be reactive. 2. Chronic findings described above. Electronically Signed: Layton Wilde MD at 11:39 EDT Tel , Service support , Chest X-Ray 06/11/20 11:07 IMPRESSION: Limited inspiration with increased markings at the lung bases slightly more prominent on the right side suggestive of either linear atelectasis and/or early infiltrate. Findings suggestive of possible ascites. Electronically Signed: Thomas Scott MD at 11:19 EDT , Service support , MRCP 06/11/20 17:56 IMPRESSION: Normal MR Cholangiopancreatography (MRCP). Electronically Signed: Sebastian Rankin MD at 20:28 EDT Tel , Service support , Renal Ultrasound 06/11/20 17:56 IMPRESSION: Normal ultrasound of the kidneys. Electronically Signed: Sebastian Rankin MD at 18:53 EDT Tel , Service support , Assessment/Plan All Active Problems (Last Updated 06/11/20 @ 15:[address] Murray Edwards, DO) SAMEER (acute kidney injury) (Acute) SIRS (systemic inflammatory response syndrome) (Acute) Hyperbilirubinemia (Acute) Pancreatitis (Acute)
--- NOTE | 2020-06-12 08:26 | EXP.PCM_ITS ---
Preliminary Cause of seizure Date of Admission: 06/11/20 Date of : 06/12/20 - Principle Diagnosis PEA hypoglycemia SAMEER SIRS elevated bilirubin acute pancreatitis Problem List: Active and Suspected Problems (Last Updated 06/11/20 @ 15:[address] Murray Edwards, DO) SAMEER (acute kidney injury) (Acute) SIRS (systemic inflammatory response syndrome) (Acute) Hyperbilirubinemia (Acute) Pancreatitis (Acute) Hospital Course 40-year-old male presents with abdominal pain and intractable nausea and vomiting. Patient stated the symptoms began on the . Stated that it happened while playing football which led to his symptoms after being struck in the abdomen. Patient presented to the emergency room and was found to have a. Of lab abnormalities, including pancreatitis, elevated bilirubin, acute kidney injury with a creatinine of 7 and thrombocytopenia with platelets of 92. Nephrology, general surgery and critical care medicine and were consulted on the . Patient did have CT of his abdomen pelvis that was unremarkable. Given the profoundly high bilirubin, general surgery requested an MRCP which was performed on the and was also unremarkable. Bilirubin did go down slightly from 10.7-8.8. LFTs went down slightly as well but were still elevated the following day. Lipase went from 1550 down to 739. Patient denied any recent alcohol consumption. Nephrology requested a renal ultrasound which was performed on the which was also negative. Patient did receive IV fluids and was anuric. Despite the IV fluids, patient's creatinine went up to 8.39. Patient was also started on broad-spectrum antibiotics with Pipracil and/tazobactam for systemic inflammatory response syndrome with unclear source of infection. Patient's work-up already included a COVID-19 rapid antigen which was negative. Patient did have Covid previous but months prior. On the morning of the , had been noted the patient had been confused but was alert. Around 712 AM, patient was noted to have seizure. He did receive 2 mg of IV lorazepam at 714. He was placed in the recovery position afterwards and then became hypoxic cyanotic and bradycardic. Patient was noted to be in PEA. CPR was initiated. Patient was noted to be hypoglycemic and did receive 3 A of D50. Patient was intubated emergently and CPR was continued. Patient received several amps of bicarb as well as D50 and epinephrine. Patient was not patient seen and examined independently. Data reviewed. I agree with the above note by the physician administrative support assistant. Transit went into V. fib did require shocks. Patient also did have PA and bradycardia but no pulse and did receive atropine. Despite this the patient had no spontaneous recovery. Patient was pronounced on June 12, 2020 at 0740. Did discuss with the patient's next of kin, Yo Hall. She informed him of the patient's dire circumstances while the CPR was ongoing. Explained to him that time we did not have a clear explanation as to all of the patient's medical lópez angements but did mention that there may been a possibility patient may have had TTP that may began prior to all his symptoms developing. He was obviously upset but expressed understanding of the dire situation. Inpatient E&M: [id number]
--- NOTE | 2020-06-12 08:28 | CON.PCM_ITS ---
Reason for Consult Date of Consultation: 06/12/20 Reason for Consultation: Shock History of Present Illness: Patient is a 40-year-old male, currently under the care of Dr. Rico, who presented to [facility] on 06/11/2020 secondary to concerns for dark stools and abdominal pain. In the ER, patient reportedly was hypotensive at 86/61 and tachycardic at 105 bpm. Laboratory work-up had shown a normal white blood cell count of 6 with a sodium of 127, bicarb of 18 creatinine of 7. Lipase was elevated at 1550, but INR was within normal limits. Patient reportedly has had some difficulty urinating. CT of the abdomen and pelvis showed acute pancreatitis with some ascites. Patient was evaluated by surgery, but placed in the intensive care unit overnight. In the intensive care unit, patient was confused overnight. Patient required only minimal nasal cannula oxygen, but no noninvasive therapy. Patient had persistently been tachycardic overnight, but EKG showed only sinus tachycardia. Patient was evaluated at approximately 5:30 AM by myself. At that time, patient was alert and interactive. Patient was slightly confused despite having some fax correct. Patient states that he was seen by Dr. Rico every 6 weeks secondary to hypertension. Patient did admit to drinking, but states he had not had a drink in 5 weeks. Patient stated he did not have any history of DTs. Patient stated that he was feeling of his usual self until Thursday in which he developed some abdominal pain after being tackled by his sons playing football. At approximately 7 AM, I was called emergently to the room for seizure activity. Patient was placed in a recovery position, but then became hypoxic, cyanotic and bradycardic. CPR was initiated immediately. Patient was intubated using rocuronium and a glide scope on the first attempt. Despite improvement in oxygenation, patient remained in PEA. Blood sugars were obtained showing hypoglycemia. Patient received 3 A of D50. See nursing documentation for exact dosages, but patient received approximately 25 minutes of CPR prior to being pronounced. Following acute events, patient's next of kin/emergency contact Yo Hall was called. Apparently Yo has some medical training and stated that he was called approximately a week to 10 days ago by the patient complaining of abdominal pain, weakness and constipation. Patient reportedly had not had any bloody bowel movements at that time. Yo had reported patient was an avid drinker, but was unaware of any history of pancreatitis. 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 Discussed with Dr. Reid about the possibility of an autopsy. Dr. Reid did not believe that an etiology outside of diffuse organ damage would be obtainable. Did discuss the possibility of HUS versus TTP versus antiphospholipid syndrome, but she stated that these are protein specific and would likely not be elucidated through an autopsy. Family is at liberty to request an autopsy if necessary. A total of 85 minutes was spent addressing patient's condition, performing CPR and evaluating documentation. (5:30 AM to 8:30 AM) Past Medical History Medical History: Medical History (Last Updated 06/11/20 @ 15:[address] Murray Edwards DO) Gout M10.9 Hyperlipidemia E78.5 Low testosterone in male R79.89 HTN (hypertension) I10 Allergies No Known Allergies Allergy (Verified 06/11/20 11:43) Home Medications: Ambulatory Orders Medication Instructions Recorded Allopurinol 100 mg PO DAILY 06/11/20 Amlodipine [Norvasc] 10 mg PO DAILY 06/11/20 Aspirin [Aspirin, Baby] 81 mg PO DAILY@0800 06/11/20 Atorvastatin Calcium [Lipitor] 10 mg PO QHS 06/11/20 Clonidine HCl 0.1 mg PO BID 06/11/20 Escitalopram Oxalate [Lexapro] 10 mg PO DAILY 06/11/20 Indomethacin 50 mg PO BID PRN PRN 06/11/20 Lisinopril 40 mg PO DAILY 06/11/20 Metoprolol Tartrate 50 mg PO DAILY 06/11/20 Testosterone Cypionate 0.5 ml IM QWEEK 06/11/20 Trazodone HCl 100 mg PO QHS 06/11/20 Surgical History: - - bilateral shoulder surgery, knee surgery Psychiatric History: No pertinent psych hx Smoking Status: Never smoker - *Family History Maternal History Items: - - no CAD Patient Problems: Active and Suspected Problems (Last Updated 06/11/20 @ 15:[address] Murray Edwards DO) SAMEER (acute kidney injury) (Acute) SIRS (systemic inflammatory response syndrome) (Acute) Hyperbilirubinemia (Acute) Pancreatitis (Acute) - Physical Exam Vitals/I&O's: Vital Signs Temp Pulse Resp BP Pulse Ox 35.7 C L 139 H 32 H 127/112 H 93 06/12/20 04:00 06/12/20 07:00 06/12/20 07:00 06/12/20 07:00 06/12/20 05:00 Oxygen Flow Rate (L/min) 2 Oxygen Delivery Method Nasal Cannula Weight: 137.8 kg Body Mass Index (BMI) 42.3 Intake and Output for Last 24 Hours 06/10/20 06/11/20 06/12/20 23:59 23:59 23:59 Intake Total 2915.08 / 3069.25 1393.17 / 1393.17 Output Total 0 / 0 0 / 0 Balance 2915.08 / 3069.25 1393.17 / 1393.17 Microbiology Past 72 Hours 06/11/20 18:00 Mucosa - Nose SARS-CoV-2 Antigen (Rapid) - Final Laboratory Results 06/11/20 08:40: WBC 6.7, RBC 4.94, Hgb 15.8, Hct 46.8, MCV 94.7 H, MCH 32.0, MCHC 33.8, RDW Std Deviation 56.3 H, RDW Coeff of Blayne 16.2 H, Plt Count 92 L, MPV 10.5, Immature Gran % (Auto) BALL ROLLING MACHINE OPERATOR, Neut % (Auto) BALL ROLLING MACHINE OPERATOR, Lymph % (Auto) BALL ROLLING MACHINE OPERATOR, [place] % (Auto) BALL ROLLING MACHINE OPERATOR, Eos % (Auto) BALL ROLLING MACHINE OPERATOR, Baso % (Auto) BALL ROLLING MACHINE OPERATOR, Absolute Neuts (auto) 4.1, Absolute Lymphs (auto) 0.67 L, Total Counted 100, Neutrophils % (Manual) 55, Band Neutrophils % 6 H, Lymphocytes % (Manual) 10 L, Monocytes % (Manual) 23 H, Eosinophils % (Manual) 1, Metamyelocytes % 4 H, Myelocytes % 1 H, Nucleated RBC % 0.8, Diff Path Review May foll, Platelet Estimate MOD DEC, RBC Morphology NORM C+C 06/11/20 08:40: PT 14.6, INR 1.2 06/11/20 08:40: Sodium 127 L, Potassium 4.6, Chloride 92 L, Carbon Dioxide 18.0 L, Anion Gap 17 H, BUN 62 H, Creatinine 7.04 H, Estim Creat Clear Calc 14.86, Est GFR (MDRD) Af Amer 11 L, Est GFR (MDRD) Non-Af 9 L, BUN/Creatinine Ratio 8.8 L, Glucose 129 H, Calcium 6.6 L 06/11/20 08:40: Blood Type O POSITIVE, Antibody Screen NEGATIVE, Crossmatch See Detail 06/11/20 08:40: Lipase 1550 H 06/11/20 08:40: Total Bilirubin 10.70 H, Direct Bilirubin 8.56 H, AST 235 H, ALT 232 H, Alkaline Phosphatase 141 H, Total Protein 7.0, Albumin 2.8 L, Globulin 4.2 06/11/20 16:45: Ammonia 15.0 06/11/20 18:20: WBC 4.2 L, RBC 4.32 L, Hgb 13.8, Hct 40.7, MCV 94.2 H, MCH 31.9, MCHC 33.9, RDW Std Deviation 56.5 H, RDW Coeff of Blayne 16.3 H, Plt Count 83 L, MPV 10.5, Immature Gran % (Auto) 2.100 H, Neut % (Auto) 72.7 H, Lymph % (Auto) 15.0 L, [place] % (Auto) 9.5, Eos % (Auto) 0.5, Baso % (Auto) 0.2, Absolute Neuts (auto) 3.1, Absolute Lymphs (auto) 0.63 L, Nucleated RBC % 0.7, Differential Comment SCANNED 06/12/20 00:20: WBC 1.8 L, RBC 4.19 L, Hgb 13.5, Hct 39.7 L, MCV 94.7 H, MCH 32.2 H, MCHC 34.0, RDW Std Deviation 57.1 H, RDW Coeff of Blayne 16.5 H, Plt Count 81 L, MPV 10.2, Neut % (Auto) Not Reportable, Absolute Neuts (auto) 1.0 L, Absolute Lymphs (auto) 0.34 L, Total Counted 100, Neutrophils % (Manual) 46 L, Band Neutrophils % 12 H, Lymphocytes % (Manual) 19, Monocytes % (Manual) 9, Metamyelocytes % 12 H, Myelocytes % 2 H, Diff Path Review July, Platelet Estimate MOD DEC, RBC Morphology NORM C+C 06/12/20 00:20: Sodium 130 L, Potassium 4.5, Chloride 96 L, Carbon Dioxide 17.0 L, Anion Gap 17 H, BUN 76 H, Creatinine 8.39 H*, Estim Creat Clear Calc 12.47, Est GFR (MDRD) Af Amer 9 L, Est GFR (MDRD) Non-Af 8 L, BUN/Creatinine Ratio 9.1 L, Glucose 94, Calcium 6.4 L*, Total Bilirubin 8.80 H, AST 152 H, ALT 154 H, Alkaline Phosphatase 141 H, Total Protein 6.3 L, Albumin 2.3 L, Globulin 4.0, Albumin/Globulin Ratio 0.6 L 06/12/20 00:20: Troponin I < 0.015 06/12/20 00:20: Lipase 739 H 06/12/20 03:51: POC Glucose 69 L 06/12/20 05:31: POC Glucose 66 L 06/12/20 07:12: Specimen Type ART, Sample Site L Radial, pH 7.15 L*, Bicarbonate Actual 13.2 L, Total CO2 14, Base Excess -16 L, O2 Saturation 70 L, ABG pCO2 38.2, ABG pO2 47 L, Brenden Test Positive, O2 Delivery Device Cannula, Liter Flow 2.0, Crit Call To/Read Back Yes, Blood Gas Notified Whom YAHAIRA Current Medications Dextrose (Dextrose 50%-Water 25 Gm/50 Ml Disp.Syrin) 0 gm IV X1 PRN; Protocol PRN Reason: Hypoglycemia Last Admin: 06/12/20 05:44 Dose: 12.5 gm Documented by: Escitalopram Oxalate (Escitalopram Oxalate 10 Mg Tablet) 10 mg PO DAILY LISA Glucagon (Glucagon 1 Mg/Ml Syringe) 1 mg IM .X1 PRN PRN Reason: Hypoglycemia Hydromorphone HCl (Hydromorphone 0.5 Mg/0.5 Ml Syringe) 0.5 mg IV Q3H PRN PRN PRN Reason: Pain Score 6-10 Last Admin: 06/12/20 02:44 Dose: 0.5 mg Documented by: Lactated Ringer's () 1,000 mls @ 200 mls/hr IV .Q5H LISA Last Admin: 06/12/20 06:31 Dose: 150 mls/hr Documented by: Piperacillin Sod/Tazobactam (Sod 3.375 gm/ Sodium Chloride) 50 mls @ 12.5 mls/hr IV Q12 LISA Last Infusion: 06/12/20 01:16 Dose: Infused Documented by: Pantoprazole Sodium 40 mg/ (Sodium Chloride) 110 mls @ 330 mls/hr IV Q12 [facility] Last Infusion: 06/11/20 21:36 Dose: Infused Documented by: Sodium Chloride () 250 mls @ 15 mls/hr IV .[id number] PRN PRN Reason: Saline Flush Last Infusion: 06/12/20 05:02 Dose: 15 mls/hr Documented by: Ondansetron HCl (Ondansetron 4 Mg/2 Ml Vial) 4 mg IV Q8H PRN PRN PRN Reason: NAUSEA/VOMITING Sodium Chloride (0.9% Saline Lock 10 Ml Syringe) 10 - 40 ml IV UD PRN PRN Reason: SALINE FLUSH Last Admin: 06/12/20 00:21 Dose: 40 ml Documented by: Trazodone HCl (Trazodone 100 Mg Tablet) 100 mg PO QHS [facility] Last Admin: 06/11/20 21:17 Dose: 100 mg Documented by: Assessment/Plan Active and Suspected Problems (Last Updated 06/11/20 @ 15:[address] Murray Edwards, DO) SAMEER (acute kidney injury) (Acute) SIRS (systemic inflammatory response syndrome) (Acute) Hyperbilirubinemia (Acute) Pancreatitis (Acute) Neuro: Cardiovascular: Respiratory: Gastrointestinal: Genitourinary: ID: Hematology: Endocrine: Skin: Lines/Tubes: Checklist: Time: Procedures: 20683 Critial Care Addl 30 Min 9xxxx: [id number] Critical care first hour
[2020-06-12 09:20] LABS: Bedside Glucose 37 mg/dL (70-110)
[2020-06-12 09:20] LABS: Bedside Glucose 261 mg/dL (70-110)
[2020-06-12 09:20] LABS: Bedside Glucose 24 mg/dL (70-110)
--- NOTE | 2020-06-12 09:38 | NURSING ---
Addendum entered by Chris Pelayo 06/12/20 12:37: LR @ 150 ml/hr from 0640 thru 0722 Original Note: ALL IV FLUIDS GIVEN IN THE LAST HOUR OF LIFE: 0714-2mg (1cc) Ativan 0719- 1 amp (50cc) Sodium Bicarb 0718- 30mg (3cc) Rocuronium 0716- 1mg (10cc) Epinephrine 0720- 1 amp (50cc) Sodium Bicarb 0721- 1mg (10cc) Epinephrine, 1 amp (50cc) d50 0722 thru 0740- D5NS @ 100 ml/hr 0723- 1 amp (50cc) D50 0726- 1 amp (50cc) D50 0725- 1mg (10cc) Epinephrine 0726- 1mg (10cc) Atropine 0725- 1 amp (50cc) Sodium Bicarb 0729- 1mg (10cc) Epinephrine 0733- 1mg (10cc) Epinephrine 0737- 1mg (10cc) Epinephrine
[2020-06-12 12:10] LABS: Pathologist Review Reviewed
[2020-06-12 12:17] LABS: Pathologist Review Reviewed
== END 2020-06-12 07:40 | DRG 682 ==
LOC: ED 09:17 → ICU 16:57
PROVIDERS: Family Medicine; Internal Medicine Critical Care Medicine; Emergency Provider Emergency Medicine; PCP Family Medicine
DX: N17.9 Acute kidney failure, unspecified (principal); K85.90 Acute pancreatitis without necrosis or infection, unspecified; R17 Unspecified jaundice; Z68.41 Body mass index [BMI] 40.0-44.9, adult; R65.10 Systemic inflammatory response syndrome (SIRS) of non-infectious origin without acute organ dysfunction; R18.8 Other ascites; R44.3 Hallucinations, unspecified; J98.11 Atelectasis; R56.9 Unspecified convulsions; I46.8 Cardiac arrest due to other underlying condition; D69.6 Thrombocytopenia, unspecified; D70.9 Neutropenia, unspecified; I95.9 Hypotension, unspecified; E16.2 Hypoglycemia, unspecified; R09.02 Hypoxemia; W51.XXXA Accidental striking against or bumped into by another person, initial encounter; Y93.61 Activity, american tackle football; Y92.9 Unspecified place or not applicable; I10 Essential (primary) hypertension; K42.9 Umbilical hernia without obstruction or gangrene; E78.5 Hyperlipidemia, unspecified; E66.9 Obesity, unspecified; M10.9 Gout, unspecified; Z79.899 Other long term (current) drug therapy; Z87.898 Personal history of other specified conditions
CPT/HCPCS: 31500; 36600; 71045; 74176; 74181; 76770; 80048; 80053; 80076; 82140; 82803; 82962; 83690; 84484; 85025; 85610; 86850; 86900; 86901; 86920; 86922; 87040; 87426; 92950; 93005; 99285; J7030; J7050; J7120; A4216; J2405; J3490